=== PATIENT | male | born 2000 | race African-American/Black ===

== ENCOUNTER 2021-01-19 02:45 | Emergency (ER) | payer SELFPAY ==
[~2021-01-19] VITALS: Ht 170.2 cm; Wt 59.0 kg
--- NOTE | 2021-01-19 02:55 | NUR ---
Patient arrived at the ER with c/o of laceration on left upper arm. Patient reported he was trying to fix the sliding door but glass broke and cut his left upper arm.
--- NOTE | 2021-01-19 02:57 | NUR ---
Dr. Phillips on bedside for MSE.
[2021-01-19] MEDS ORDERED: TDAP DIPH,PERTUSS,TET VAC/PF 0.5 ML DISP.SYRIN IM ONE ×2 (03:00→03:17)
--- NOTE | 2021-01-19 03:20 | NUR ---
Informed patient regarding Dr Phillips's order to Ten[place] shot, patient gave verbal consent.
--- NOTE | 2021-01-19 03:26 | NUR ---
Patient discharged to home in stable condition. Written and verbal after care instructions given. Patient verbalizes understanding of instructions. Stressed follow up or return to ER for worsening s/s. Patient ambulated from the ER with steady gait. All belongings with patient
[2021-01-19 03:30] VITALS: BP 100/50
[2021-01-19] MEDS ORDERED: LIDOCAINE 1%-EPI 1:100,000 20 ML VIAL IJ ONE (03:30)
== END 2021-01-19 03:26 | disposition home or self-care (01) ==
LOC: ER 02:52
DX: S41.112A Laceration without foreign body of left upper arm, initial encounter (principal); W25.XXXA Contact with sharp glass, initial encounter; Y92.89 Other specified places as the place of occurrence of the external cause
CPT/HCPCS: 12001; 90471; 90715; 99283; J3490; A4217; A4663